=== PATIENT | female | born 1965 | race Caucasian/White ===

== ENCOUNTER 2023-08-13 08:58 | Outpatient (OUT) | payer SELFPAY ==
[2023-08-13 09:50] LABS: Alanine Aminotransferase 20 U/L (14-59); Albumin Globulin Ratio 0.8; Albumin Level 3.3 g/dL (3.4-5.0); Alkaline Phosphatase 63 U/L (46-116); Anion Gap 13.7; Aspartate Amino Transferase 14 U/L (15-37); BUN Creatinine Ratio 19.4; Bilirubin Total 0.8 mg/dL (0.2-1.0); Calcium 9.3 mg/dL (8.5-10.1); Carbon Dioxide 29.4 mmol/L (21.0-32.0); Chloride 101 mmol/L (98-107); Chol HDL Ratio 5.4; Cholesterol 331 mg/dL (<=200); Estimated GFR (African America >60 (>=60); Estimated GFR (Non-African Ame >60 (>=60); Free T3 2.48 pg/mL (2.18-3.98); Glucose 99 mg/dL (74-106); HDL Cholesterol 61 mg/dL (40-60); Potassium 4.1 mmol/L (3.5-5.1); Sodium 140 mmol/L (136-145); Thyroid Stimulating Hormone 2.671 uIU/mL (0.358-3.740); Total Protein 7.3 g/dL (6.4-8.2); Triglycerides 171 mg/dL (<=150); VLDL CHOLESTEROL 34.2 mg/dL
[2023-08-13 09:55] LABS: Estimated Average Glucose 117 mg/dL; Glycohemoglobin A1C 5.7 % (4.5-6.2)
[2023-08-13 11:20] LABS: Basophils Absolute Auto 0.1 10^3/uL (0.0-0.1); Basophils Percent Auto 1.1 % (0.2-2.0); Eosinophils Absolute Auto 0.3 10^3/uL (0.0-0.7); Eosinophils Percent Auto 4.6 % (0.9-7.0); Hematocrit 41.2 % (36.0-48.0); Hemoglobin 12.7 g/dL (12.0-16.0); Immature Granulocytes Abs Auto 0.01 10^3/uL (0.00-0.03); Immature Granulocytes Pct Auto 0.1 % (0.0-0.5); Lymphocytes Absolute Auto 1.9 10^3/uL (1.2-3.8); Mean Corpuscular HGB Conc 30.8 g/dL (29.9-35.2); Mean Corpuscular Hemoglobin 26.7 pg (26.7-34.0); Mean Corpuscular Volume 86.7 fL (81.0-99.0); Mean Platelet Volume 9.3 fL (9.5-13.5); Monocytes Absolute Auto 0.5 10^3/uL (0.3-0.8); Monocytes Percent Auto 7.1 % (1.7-12.0); Neutrophils Absolute Auto 4.3 10^3/uL (1.4-6.5); Neutrophils Percent Auto 60.1 % (43.0-75.0); Platelet Count 403 10^3/uL (150-450); Red Blood Count 4.75 10^6/uL (4.20-5.40); Red Cell Distribution Width 14.3 % (11.0-15.0); White Blood Count 7.2 10^3/uL (4.0-11.0)
== END 2023-08-13 08:59 | disposition home or self-care (01) ==
LOC: LAB 09:02
PROVIDERS: PCP Family Medicine; Visit Provider Family Medicine
DX: Z00.00 Encounter for general adult medical examination without abnormal findings (principal)
CPT/HCPCS: 36415; 80053; 80061; 83036; 84436; 84443; 84481; 85025

== ENCOUNTER 2025-01-03 08:08 | Emergency (ER) | payer SELFPAY ==
[2025-01-03 08:18] VITALS: BP 151/70; PULSE 55; TEMP 36.9; O2SAT 96; BMI 32.3
--- NOTE | 2025-01-03 08:38 | ED_ITS ---
HPI HPI - General Adult General Chief complaint: Ear Stated complaint: Q TIP LOST L EAR Time Seen by Provider: 01/03/25 08:21 Source: patient Mode of arrival: walk-in Limitations: no limitations History of Present Illness HPI narrative: 59-year-old female presents for end of Q-tip in her left ear since just before she came into the emergency department. Her hearing is decreased slightly but she does not have any pain. Related Data Home Medications ?Medication ?Instructions ?Recorded ?Confirmed desvenlafaxine succinate 50 mg mg PO 01/03/25 tablet,extended release 24 hr simvastatin 20 mg tablet mg 01/03/25 tizanidine 4 mg tablet mg 01/03/25 Allergies Allergy/AdvReac Type Severity Reaction Status Date / Time No Known Drug Allergies Allergy Verified 01/03/25 08:25 Opioid HPI Opioid Management Most Recent Opioid Data: Last Pain Scale 4 Today, 08:18 Review of Systems ROS Narrative A ten point review of systems is negative except as noted above. PFSH PFSH Social History Little interest or pleasure in doing things: not at all Feeling down, depressed, or hopeless: not at all Exam Narrative Exam Narrative: Nurses note and vital signs reviewed and patient is not hypoxic. General: The patient appears well and in no apparent distress. Patient is resting comfortably on cart. Skin: Warm, dry, no pallor noted. There is no rash noted. Head: Normocephalic, atraumatic Eye: Normal conjunctiva, no drainage Ears, Nose, Mouth, and Throat: oral mucosa is moist. Nares patent. Foreign body is present in her left ear. Cardiovascular: Regular Rate and Rhythm Respiratory: Patient is in no distress, no accessory muscle use Back: non-tender GI: Soft and nontender Musculoskeletal: The patient has no evidence of calf tenderness, no pitting edema, symmetrical pulses noted bilaterally Neurological: A&O, normal speech Psychiatric: Cooperative Constitutional Vital Signs, click to edit/add: Last Vital Signs Temp 98.4 F 01/03/25 08:18 Pulse 55 L 01/03/25 08:18 Resp 14 01/03/25 08:18 BP 151/70 H 01/03/25 08:18 Pulse Ox 96 01/03/25 08:18 O2 Del Method Room Air 01/03/25 08:18 Course Vital Signs Vital signs: Vital Signs Temperature 98.4 F 01/03/25 08:18 Pulse Rate 55 L 01/03/25 08:18 Respiratory Rate 14 01/03/25 08:18 Blood Pressure 151/70 H 01/03/25 08:18 Pulse Oximetry 96 01/03/25 08:18 Oxygen Delivery Method Room Air 01/03/25 08:18 Temperature 98.4 F 01/03/25 08:18 Pulse Rate 55 L 01/03/25 08:18 Respiratory Rate 14 01/03/25 08:18 Blood Pressure 151/70 H 01/03/25 08:18 Pulse Oximetry 96 01/03/25 08:18 Oxygen Delivery Method Room Air 01/03/25 08:18 Medical Decision Making MDM Narrative Medical decision making narrative: I have removed the foreign body with alligator forceps. She can hear much better now and is able to be discharged home. There is no rupture of the tympanic membrane. Differential Diagnosis Differential Diagnosis: Foreign body, tympanic membrane rupture Discharge Plan Discharge Chief Complaint: Ear Clinical Impression: Foreign body in ear Patient Disposition: Home, Self-Care Time of Disposition Decision: 08:37 Condition: Good Mode of Transportation: Private Vehicle Prescriptions / Home Meds: No Action tizanidine 4 mg tablet simvastatin 20 mg tablet desvenlafaxine succinate 50 mg tablet extended release 24 hr PO Print Language: Austrian Instructions: Ear Foreign Body (ED) Referrals: Krunal Pierson MD [Primary Care Provider, Family Practice] - 1 week
== END 2025-01-03 08:49 | disposition home or self-care (01) ==
PROVIDERS: Emergency Provider Emergency Medicine; PCP Family Medicine
DX: T16.2XXA Foreign body in left ear, initial encounter (principal)
CPT/HCPCS: 99281